=== PATIENT | female | born 1955 | race African-American/Black ===

== ENCOUNTER 2017-01-08 21:43 | Emergency (ER) | payer OTHER ==
[~2017-01-08 21:43] MED LIST: ASABAYER PO; CARD60 PO; CAT1 PO; HYZAAR 50/12.51 TAB PO; KLOR-CON 1010 MEQ PO; NORV10 PO; PR25 PO; SPIRO25 PO; ULTRAM50 PO; ZOCOR20 PO
== END 2017-01-08 22:39 | disposition home or self-care (01) ==
LOC: ER 21:43
DX: L29.9 Pruritus, unspecified (principal); I10 Essential (primary) hypertension; Z88.0 Allergy status to penicillin; Z79.82 Long term (current) use of aspirin; Z79.899 Other long term (current) drug therapy
CPT/HCPCS: 99282